=== PATIENT | male | born 1975 | race Two or more races ===

== ENCOUNTER 2020-01-19 13:46 | Emergency (ER) | payer SELFPAY | END 2020-01-19 15:00 | disposition left against medical advice (07) | LOC: ER 14:02 | DX: R07.89 Other chest pain (principal); Z53.21 Procedure and treatment not carried out due to patient leaving prior to being seen by health care provider ==

== ENCOUNTER 2022-12-07 06:08 | Emergency (ER) | payer SELFPAY | END 2022-12-07 06:41 | disposition home or self-care (01) | LOC: ER 06:32 | DX: R68.89 Other general symptoms and signs (principal); Z53.21 Procedure and treatment not carried out due to patient leaving prior to being seen by health care provider ==